=== PATIENT | female | born 1990 | race Caucasian/White ===

== ENCOUNTER 2024-02-08 15:38 | Emergency (ER) | payer OTHER, SELFPAY ==
[2024-02-08 15:39] VITALS: BP 154/100
--- NOTE | 2024-02-08 15:47 | ED.GENMED ---
ED Provider Triage
<Delicia Acevedo MISSING PERSONS INVESTIGATOR - Last Filed: 02/08/24 15:51>
-
Patient seen by provider in Triage?: Seen in Triage
Attestation: A medical screening examination has been initiated by a qualified medical provider. Based on the assessment performed at this time, it has been determined that an emergent medical condition may exist and the patient has been informed
that further medical evaluation and possible additional diagnostic testing may be needed.
HPI: 33-year-old female presents for headache mostly on the right side of her head which started 01/20, for the past week patient has had pressure behind her right eye that is gradually worsening. Pain has been there daily, is
gradually worsening. Fleeting relief when she presses on the top right of her head with her palm.
Denies change in vision. Denies n/v/d/c. No recent head injury
GENERAL: Alert , in no apparent distress
EYE: No visual abnormalities.
NECK: Trachea midline
ENT: No visible abnormalities.
LUNGS: No acute respiratory distress
NEUROLOGICAL: Alert and oriented
SKIN: Skin intact. No visible changes.
MUSCULOSKELETAL: Moving extremities normally
PSYCH: Normal and appropriate interaction.
This is a medical evaluation conducted in person to initiate diagnostic evaluation and provide initial therapeutics. Please see further documentation by the treating clinician.
History of Present Illness
<Delicia Acevedo, MISSING PERSONS INVESTIGATOR - Last Filed: 02/08/24 15:51>
General
Chief Complaint: Headache
Time Seen by Provider: 02/08/24 17:05
<Shen Harmon DO - Last Filed: 02/08/24 19:59>
General
Source: patient and family
Exam Limitations: none
Nursing documentation reviewed up to this point in time: agreed with
History of Present Illness
History of Present Illness:
33-year-old female right-sided headache onset around 's been fairly constant since then minimal relief with OTC meds had a similar reaction more severe headache after giving to twins few years ago does not typically get a lot of
headaches so no photophobia no nausea vomiting no rash no sick contacts no arm or leg weakness no visual changes pain is on the right side about 10 days prior to the start of her symptoms should have a fever and some congestion
Past History
<Shen Harmon, DO - Last Filed: 02/08/24 19:59>
Past History
ED Past Medical History: None
ED Past Surgical History:
Social History
Tobacco: Non-smoker
Alcohol: Occasional
Drug: None
Personal:
Living: with family
Employment: Employed
Review of Systems
<Shen Harmon, DO - Last Filed: 02/08/24 19:59>
Review of Systems
All Other Systems: Not applicable
Constitutional: Reports no symptoms; Denies fever or fatigue
EENT: Reports no symptoms
Respiratory: Reports no symptoms
Cardiac: Reports no symptoms
ABD/GI: Reports no symptoms
Musculoskeletal: Reports no symptoms
Neurological: Reports headache; Denies dizzy or numbness
Phy Exam
<Shen Harmon, DO - Last Filed: 02/08/24 19:59>
Physical Exam
Physical Exam:
Physical Exam
General: no apparent distress, not acutely ill
Neck: No photophobia no jaundice no pain with flexion of the
Heart: s1/s2 regular rate and rhythm, no murmur. equal radial pulses.
Lungs: no acute respiratory distress. clear bilaterally
Abdomen: Nontender
Neuro: alert and oriented. no focal neurological deficits
Skin: no rash
Psychiatric: well kept. interactive and cooperative
Extremities: no edema.
Course
<Delicia Acevedo MISSING PERSONS INVESTIGATOR - Last Filed: 02/08/24 15:51>
Orders/Labs/Results
Orders:
Orders
02/08/24 15:43
Test Result ONCE
02/08/24 15:47
Complete Blood Count/With Diff Urgent
Comprehensive Metabolic Panel Urgent
HCG, Serum Qualitative Screen Urgent
02/08/24 15:49
CT Head W/o Iv Contrast Urgent
Comment: ,
Reason For Exam: Pain, pressure right side of head, behind R eye
02/08/24 17:24
Ketorolac [Toradol] 30 mg IV NOW STA
Ondansetron Injectable [Zofran] 4 mg IV NOW STA
02/08/24 19:13
Metoclopramide [Reglan] 10 mg IV NOW STA
Abnormal Lab Results
02/08/24
15:47
RBC 4.18 L 10^6/uL
(4.20-5.40)
Hct 35.9 L %
(37.0-47.0)
MPV 10.7 H fL
(7.4-10.4)
BUN 20 H mg/dl
(7-17)
Alkaline Phosphatase 36 L U/L
(38-126)
02/08/24 15:47
02/08/24 15:47
Vital Signs
Initial and Last Documented VS:
Initial Vital Signs
Temp Pulse Resp BP Pulse Ox
98.1 F 82 18 154/100 100
02/08/24 15:39 02/08/24 15:39 02/08/24 15:39 02/08/24 15:39 02/08/24 15:39
Last Documented Vital Signs
Temp Pulse Resp BP Pulse Ox
98.1 F 82 20 144/78 99
02/08/24 15:39 02/08/24 19:01 02/08/24 19:01 02/08/24 19:01 02/08/24 19:01
keisha;Shen Harmon, DO - Last Filed: 02/08/24 19:59>
Orders/Labs/Results
Orders:
Orders
02/08/24 15:43
Test Result ONCE
02/08/24 15:47
Complete Blood Count/With Diff Urgent
Comprehensive Metabolic Panel Urgent
HCG, Serum Qualitative Screen Urgent
02/08/24 15:49
CT Head W/o Iv Contrast Urgent
Comment: ,
Reason For Exam: Pain, pressure right side of head, behind R eye
02/08/24 17:24
Ketorolac [Toradol] 30 mg IV NOW STA
Ondansetron Injectable [Zofran] 4 mg IV NOW STA
02/08/24 19:13
Metoclopramide [Reglan] 10 mg IV NOW STA
Abnormal Lab Results
02/08/24
15:47
RBC 4.18 L 10^6/uL
(4.20-5.40)
Hct 35.9 L %
(37.0-47.0)
MPV 10.7 H fL
(7.4-10.4)
BUN 20 H mg/dl
(7-17)
Alkaline Phosphatase 36 L U/L
(38-126)
02/08/24 15:47
02/08/24 15:47
Vital Signs
Initial and Last Documented VS:
Initial Vital Signs
Temp Pulse Resp BP Pulse Ox
98.1 F 82 18 154/100 100
02/08/24 15:39 02/08/24 15:39 02/08/24 15:39 02/08/24 15:39 02/08/24 15:39
Last Documented Vital Signs
Temp Pulse Resp BP Pulse Ox
98.1 F 82 20 144/78 99
02/08/24 15:39 02/08/24 19:01 02/08/24 19:01 02/08/24 19:01 02/08/24 19:01
<Shen Harmon DO - Last Filed: 02/08/24 19:59>
MDM/Problems Addressed
Differential Diagnosis Includes:
Migraine, sinusitis, postviral syndrome conceivably mass, no signs of seizure not vertiginous doubt DINKEY ENGINE FIRER/FIREMAN infection
MDM/Problems Addressed:
Headache
<Shen Harmon DO - Last Filed: 02/08/24 19:59>
*Radiology
Radiology exam reviewed: radiology read reviewed
*Pulse Oximetry
Patient hypoxic: no
*Industrial Pipefitter Journeyman Interpretation
Rate: Industrial Pipefitter Journeyman- N/A
*Critical Care Note
Total Time (30-74mins, 75-104mins- exclusive of procedures): Not Applicable
<Shen Harmon, DO - Last Filed: 02/08/24 19:59>
Update Note
Update Note:
Update patient feeling better after Toradol and Zofran, workup noted and I do not believe this is DINKEY ENGINE FIRER/FIREMAN infection, perhaps a migraine variant, will try dose of Reglan and have her follow-up with her PCP
ED Attending Note
<Delicia Acevedo MISSING PERSONS INVESTIGATOR - Last Filed: 02/08/24 15:51>
-
Portions of this chart may have been created with voice recognition software.� Occasional wrong word or��sound alike� substitutions may have occurred due to the inherent limitations of voice recognition software.
Discharge Plan
Departure
Patient Disposition: Home (Routine Discharge)
Date of Disposition: 02/08/24
Time of Disposition: 19:57
Patient with high blood pressure during this ER visit?: No
Condition: Good
Covid-19: Not Applicable
Discharge Problem:
Headache
Instructions: Headache, Adult (DC)
Prescriptions:
New
ibuprofen 600 mg tablet
600 mg PO Q8H PRN (Reason: Pain) Qty: 30 0RF
metoclopramide HCl [Reglan] 10 mg tablet
10 mg PO Q8HPRN PRN (Reason: headache) Qty: 20 0RF
No Action
prenat.vits,woo,[id number] Tablet
1 tab PO DAILY
Tylenol 325 mg
650 mg PO PRN PRN (Reason: headache)
Rx Instructions:
Patient states not allergic to tylenol
ibuprofen 600 mg Tablet
600 mg PO Q6HPRN PRN (Reason: cramps) Qty: 0 0RF
Referrals:
Irene Gallegos MD [Family Provider] -
Interventions
Interventions:
*Risk Screen - Suicide Last Done: 02/08/24 15:39
*General Assessment Last Done: 02/08/24 15:39
*Neglect/Abuse Screening Last Done: 02/08/24 15:39
ED- Fall Risk Assessment Last Done: 02/08/24 17:49
*ED COVID-19 Vaccine History Last Done: 02/08/24 17:44
ED- Neurological Assessment Last Done: 02/08/24 17:49
Discharge Date and Time
Print Language: CHADIAN
[2024-02-08 15:54] LABS: % Basophils 0.4 % (0-2); % Eosinophils 0.7 % (0-6); % Immature Granulocytes 0.1 % (0-0.5); % Lymphocytes 32.9 % (20.5-51.1); % Monocytes 5.9 % (1.7-9.3); Absolute Eosinophils 0.1 10^3/uL (0-0.7); Absolute Lymphocytes 2.4 10^3/uL (1.2-3.4); Absolute Monocytes 0.4 10^3/uL (0.1-0.6); Absolute Neutrophils 4.4 10^3/uL (1.4-6.5); Hematocrit 35.9 % (37.0-47.0); Hemoglobin 12.1 g/dL (12.0-16.0); Mean Corp Hgb Conc. 33.7 g/dL (33.0-37.0); Mean Corpuscular Hgb 28.9 pg (27.0-31.0); Mean Corpuscular Volume 85.9 fL (81.0-99.0); Mean Platelet Volume 10.7 fL (7.4-10.4); Nucleated Red Blood Cells % 0 %; Platelet Count 208 10^3/uL (130-400); Red Blood Cell Count 4.18 10^6/uL (4.20-5.40); Red Cell Dist. Width 12.7 % (11.5-14.5); White Blood Cell Count 7.3 10^3/uL (4.8-10.8)
[2024-02-08 16:18] LABS: HCG, Serum Qualitative Screen Negative
[2024-02-08 16:20] LABS: ALT (SGPT) 27 U/L (0-35); AST (SGOT) 25 U/L (14-36); Alkaline Phosphatase 36 U/L (38-126); Blood Urea Nitrogen 20 mg/dl (7-17); Calcium 9.6 mg/dl (8.4-10.2); Carbon Dioxide 25 mmol/L (22-30); Chloride 103 mmol/L (98-107); Glucose 77 mg/dl (70-99); Potassium 3.9 mmol/L (3.5-5.1); Sodium 140 mmol/L (135-145); Total Bilirubin 0.7 mg/dl (0.2-1.3); Total Protein 7.6 g/dl (6.3-8.2); eGFR > 60.00
[2024-02-08 17:44] VITALS: BMI 21.0
[2024-02-08] MEDS: TORADOL 30 MG IV (18:06)
[2024-02-08] MEDS: ZOFRAN 4 MG IV (18:06)
[2024-02-08 19:01] VITALS: BP 144/78
[2024-02-08] MEDS: REGLAN 10 MG IV (19:41)
== END 2024-02-08 22:15 | disposition home or self-care (01) ==
LOC: EMR 15:38
PROVIDERS: Emergency Medicine; EMERGENCY PHYSICIAN Emergency Medicine; FAMILY PHYSICIAN Emergency Medicine
DX: R51.9 Headache, unspecified (principal)
CPT/HCPCS: 99284; 96374; 96375 ×2; 70450; 80053; 84703; 85025

== ENCOUNTER → 2024-12-16 13:56 | Outpatient (REF) | payer BC, SELFPAY | LOC: HWRAD 13:56 | PROVIDERS: ATTENDING PHYSICIAN Obstetrics & Gynecology; FAMILY PHYSICIAN Emergency Medicine | DX: N92.0 Excessive and frequent menstruation with regular cycle (principal) | CPT/HCPCS: 76830; 76856 ==